=== PATIENT | male | born 1990 | race Hispanic/Latino ===

== ENCOUNTER 2017-05-12 03:16 | Emergency (ER) | payer OTHER ==
[2017-05-12 03:29] VITALS: TEMP 98.7
[2017-05-12] MEDS ORDERED: Sodium Chloride 0.9% 1,000 ML IV STA (03:46)
[2017-05-12 03:57] LABS: HEMOGLOBIN 14.1 g/dL (14.0-18.0); MEAN CELL VOLUME 87.3 fl (80.0-105.0); MEAN CORPUSCULAR HEMOGLOBIN 29.3 pg (25.0-35.0); MEAN CORPUSCULAR HGB CONC 33.6 g/dl (31.0-37.0); MEAN PLATELET VOLUME 10.4 fl (7.0-11.0); RBC 4.81 10^6/uL (3.5-6.1); RED CELL DISTRIBUTION WIDTH 13.8 % (11.5-14.5); WHITE BLOOD COUNT 10.1 10^3/ul (4.5-11.0)
--- NOTE | 2017-05-12 04:00 | ED PDOC ---
Arrival/HPI <Tobi Galvan - Last Filed: 05/12/17 05:32> - General Historian: Patient - History of Present Illness Time/Duration: 1 hour Symptom Onset: Sudden Symptom Course: Improving Context: Home <Makenzie Lomeli - Last Filed: 05/12/17 05:45> - General Chief Complaint: Syncope Time Seen by Provider: 05/12/17 03:22 - History of Present Illness Narrative History of Present Illness (Text): 05/12/17 03:51 27 y/o male with past medical history of complicated PNA with ARDS about 1 year ago presents for syncopal episode that pt experienced at home 1 hour prior to coming to ED. Patient states that he was sitting on toilet when he felt lightheaded. He eventually fell forward after loosing consciousness. Patient does not know how long he was down for. Denies having any N/V/, abd pain, CP, SOB, recent illnesses, F/C. Currently c/o headache. Patient recalls 1 similar episode of syncope about 8 years ago also during straining on toilet. Patient is noted to have abrasion on nose (Makenzie Lomeli) Past Medical History - Provider Review Nursing Documentation Reviewed: Yes - Travel History Have you recently traveled outside [place] w/in the past 3 mons?: No - Cardiac Other/Comment: ards - Pulmonary Hx Respiratory Disorders: No - Neurological Hx Neurological Disorder: No - HEENT Hx HEENT Disorder: No - Renal Hx Renal Disorder: No - Endocrine/Metabolic Hx Endocrine Disorders: No - Hematological/Oncological Hx Blood Disorders: No - Integumentary Hx Dermatological Disorder: No - Musculoskeletal/Rheumatological Hx Musculoskeletal Disorders: No - Genitourinary/Gynecological Hx Genitourinary Disorders: No - Psychiatric Hx Psychophysiologic Disorder: No Hx Substance Use: No - Surgical History Other/Comment: tracheostomy x1 year <Makenzie Lomeli - Last Filed: 05/12/17 05:45> Family/Social History - Physician Review Nursing Documentation Reviewed: Yes Family/Social History: Unknown Family HX Smoking Status: Never Smoked Hx Alcohol Use: Yes Frequency of alcohol use: Socially Hx Substance Use: No <Makenzie Lomeli - Last Filed: 05/12/17 05:45> Allergies/Home Meds <Tobi Galvan - Last Filed: 05/12/17 05:32> <Makenzie Lomeli - Last Filed: 05/12/17 05:45> Allergies/Adverse Reactions: Allergies metoclopramide [From Reglan] Adverse Reaction (Verified 05/12/17 03:31) ANAPHYLAXIS bp irregular corresponds with reglan dosing Home Medications: Home Meds Medication Instructions Recorded Confirmed Cetirizine HCl [Zyrtec Allergy] 10 mg PO DAILY 05/12/17 05/12/17 Review of Systems - Review of Systems Constitutional: Normal. absent: Fatigue, Fevers Eyes: Normal. absent: Vision Changes, Photophobia, Eye Pain ENT: Normal. absent: Sore Throat, Rhinorrhea Respiratory: Normal. absent: SOB, Sputum, Wheezing Cardiovascular: Normal. absent: Chest Pain, Palpitations, Edema, Calf Pain Gastrointestinal: Normal. absent: Abdominal Pain, Constipation, Diarrhea, Nausea, Vomiting Genitourinary Male: Normal. absent: Dysuria, Frequency Musculoskeletal: Normal. absent: Arthralgias, Back Pain, Neck Pain Skin: Normal. absent: Rash, Pruritis, Skin Lesions, Laceration Neurological: Headache, Other (syncope ) Endocrine: Normal. absent: Diaphoresis, Polyuria Hemo/Lymphatic: Normal. absent: Adenopathy, Easy Bleeding Psychiatric: absent: Anxiety, Depression <Makenzie Lomlei - Last Filed: 05/12/17 05:45> Physical Exam Vital Signs Reviewed: Yes Temperature: Afebrile Blood Pressure: Normal Pulse: Tachycardic Respiratory Rate: Normal Appearance: Positive for: Well-Appearing, Non-Toxic, Comfortable Pain Distress: Mild Mental Status: Positive for: Alert and Oriented X 3 - Systems Exam Head: Present: Normocephalic, Abrasion (on bridge of nose ). No: Atraumatic Pupils: Present: PERRL Extroacular Muscles: Present: EOMI Conjunctiva: Present: Normal Mouth: Present: Moist Mucous Membranes Pharnyx: No: ERYTHEMA, EXUDATE, TONSILS ENLARGED Nose (External): Present: Abrasion Nose (Internal): Present: Other (dry blood noted in nares ). No: No Active Bleeding Neck: Present: Normal Range of Motion. No: MIDLINE TENDERNESS Respiratory/Chest: Present: Clear to Auscultation, Good Air Exchange. No: Respiratory Distress, Accessory Muscle Use, Wheezes, Rhonchi Cardiovascular: Present: Regular Rate and Rhythm, Normal S1, S2. No: Murmurs, Rub, Gallop Abdomen: Present: Normal Bowel Sounds. No: Tenderness, Distention, Peritoneal Signs, Rebound, Guarding Lower Extremity: Present: Normal Inspection, NORMAL PULSES, Normal ROM. No: Edema, CALF TENDERNESS, Kim's Sign, Tenderness Neurological: Present: GCS=15, CN II-XII Intact, Speech Normal, Motor Func Grossly Intact, Normal Sensory Function, Memory Normal Skin: Present: Warm, Dry, Normal Color, Abrasion (bridge of nose ). No: Rashes Psychiatric: Present: Alert, Oriented x 3, Normal Insight, Normal Concentration <Makenzie Lomeli - Last Filed: 05/12/17 05:45> Vital Signs Temp Pulse Resp BP Pulse Ox 05/12/17 05:16 89 16 120/78 100 05/12/17 03:25 98.7 F 102 H 22 118/79 98 Medical Decision Making - EKG Interpretation Interpreted by ED Physician: Yes Type: 12 lead EKG <Tobi Galvan - Last Filed: 05/12/17 05:32> - Lab Interpretations I have reviewed the lab results: Yes Interpretation: All labs normal - RAD Interpretation [employer] Operations Intelligence Officer: ED Physician - EKG Interpretation Interpreted by ED Physician: Yes Type: 12 lead EKG <Makenzie Lomeli - Last Filed: 05/12/17 05:45> ED Course and Treatment: Impression: Pt seen and evaluated with medical staff specialist. 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 Aware and agree with HPI, clinical findings, plan, and management. Plan: -- CT Head w/o contrast -- EKG -- XR Nasal Bones -- Labs, cardiac enzymes -- IV fluids -- Reassess and disposition (Tobi Galvan) 05/12/17 04:06 27 y/o male presents after experiencing syncopal episode at home Will check: CBC, BMP, cardiac enzymes, EKG, CT of head and x ray of nose Patient will get 1 L of NS bolus 05/12/17 04:36 CT of head is noted to be negative. Nasal xrays are normal. abrasion is cleaned and bacitracin is applied to effected area. (Makenzie Lomeli) - Lab Interpretations Lab Results: 05/12/17 03:45 05/12/17 04:30 Lab Results 05/12/17 04:30: Sodium 138, Potassium 4.3, Chloride 106, Carbon Dioxide 23, Anion Gap 13, BUN 14, Creatinine 0.9, Est GFR ( Amer) > 60, Est GFR (Non- Af Amer) > 60, Random Glucose 114 H, Calcium 8.7, Lactate Dehydrogenase 533, Total Creatine Kinase 240 H, CK-MB (CK-2) 1.3, CK-MB (CK-2) % Cancelled, Troponin I < 0.01 05/12/17 03:45: WBC 10.1, RBC 4.81, Hgb 14.1, Hct 42.0, MCV 87.3, MCH 29.3, MCHC 33.6, RDW 13.8, Plt Count 248, MPV 10.4 - RAD Interpretation Narrative RAD Interpretations (Text): 05/12/17 05:27 nasal x rays are nromal. Ct of head is negative (Makenzie Lomeli) Radiology Orders: 05/12/17 03:48 HEAD W/O CONTRAST [CT] Stat NASAL BONES [RAD] Stat - EKG Interpretation EKG Interpretation (Text): 05/12/17 04:08 NSR with HR of 93. 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 SHERYL has examined the patient and agrees with the treatment plan. <Tobi Galvan - Last Filed: 05/12/17 05:32> Disposition/Present on Arrival <Tobi Galvan - Last Filed: 05/12/17 05:32> - Present on Arrival Any Indicators Present on Arrival: No History of DVT/PE: No History of Uncontrolled Diabetes: No Urinary Catheter: No History of Decub. Ulcer: No History Surgical Site Infection Following: None - Disposition Have Diagnosis and Disposition been Completed?: Yes Disposition Time: 05:25 Patient Plan: Discharge <Makenzie Lomeli - Last Filed: 05/12/17 05:45> - Disposition Diagnosis: Vasovagal episode, Nasal contusion Disposition: HOME/ ROUTINE Patient Problems: Current Active Problems Problem Status Onset Nasal contusion Acute Vasovagal episode Acute Condition: GOOD Additional Instructions: Zeke Titus, thank you for letting us take care of you today. Your provider was Makenzie Lomeli. You were treated for vasovagal episode. The emergency medical care you received today was directed at your acute symptoms. If you were prescribed any medication, please fill it and take as directed. It may take several days for your symptoms to resolve. Return to the Emergency Department if your symptoms worsen, do not improve, or if you have any other problems. Please contact your doctor or call one of the physicians/clinics you have been referred to that are listed on the Patient Visit Information form that is included in your discharge packet. Bring any paperwork you were given at discharge with you along with any medications you are taking to your follow up visit. Our treatment cannot replace ongoing medical care by a primary care provider (PCP) outside of the emergency department. Thank you for allowing the [facility] team to be part of your care today. If you had an X-Ray or CT scan: A Radiologist will review the ED reading if any change in treatment is needed we will contact you. If you had a blood, urine, or wound culture: It will take several days for the results, if any change in treatment is needed we will contact you. If you had an STI test: It will take 48 hours for the results. Please call after 1 week if you have not heard back. Forms: [facility] (Greenlandic), WORK NOTE
[2017-05-12 04:53] LABS: BLOOD UREA NITROGEN 14 mg/dL (7-21); CALCIUM 8.7 mg/dL (8.4-10.5); GFR AFRICAN-AMERICAN > 60; GFR NON-AFRICAN AMERICAN > 60
[2017-05-12 05:09] LABS: CK-MB 1.3 ng/mL (0.0-3.6)
[2017-05-12 05:13] LABS: TROPONIN I < 0.01 ng/mL
[2017-05-12 05:43] VITALS: BP 120/78; PULSE 89; RESP 16; O2SAT 100
--- NOTE | 2017-05-12 07:02 | CT ---
PROCEDURE: CT HEAD WITHOUT CONTRAST. HISTORY: syncope COMPARISON: None available. TECHNIQUE: Axial computed tomography images were obtained through the head/brain without intravenous contrast. Radiation dose: Total exam DLP = 725.84 mGy-cm. This CT exam was performed using one or more of the following dose reduction techniques: Automated exposure control, adjustment of the mA and/or kV according to patient size, and/or use of iterative reconstruction technique. FINDINGS: HEMORRHAGE: No intracranial hemorrhage. BRAIN: No mass effect or edema. No atrophy or chronic microvascular ischemic changes. VENTRICLES: Unremarkable. No hydrocephalus. CALVARIUM: Unremarkable. PARANASAL SINUSES: Chronic ethmoid air cell disease. MASTOID AIR CELLS: Unremarkable as visualized. No inflammatory changes. OTHER FINDINGS: None. IMPRESSION: Normal CT of the Head.
--- NOTE | 2017-05-12 08:02 | RAD ---
PROCEDURE: No all HISTORY: syncope COMPARISON: None available. TECHNIQUE: Frontal and lateral radiographs of the nasal bones. FINDINGS: No fracture of nasal bones visualized. No destructive lesion. IMPRESSION: No nasal bone fracture visualized.
--- NOTE | 2017-05-12 15:58 | CARD ---
APPROVED REPORT EKG Measurement Heart [id number] <Conclusion> Normal sinus rhythm Normal ECG
== END 2017-05-12 05:49 | disposition home or self-care (01) ==
LOC: ED 03:16
DX: S00.33XA Contusion of nose, initial encounter (principal); W18.11XA Fall from or off toilet without subsequent striking against object, initial encounter; Y93.E8 Activity, other personal hygiene; Y92.002 Bathroom of unspecified non-institutional (private) residence as the place of occurrence of the external cause; R55 Syncope and collapse
CPT/HCPCS: 70160; 70450; 80048; 82550; 82553; 83615; 84484; 85027; 93005; 96360; 99285; J7040

== ENCOUNTER 2017-05-22 11:40 | Day surgery (SDC) | payer OTHER ==
[2017-05-21 09:04] VITALS: BMI 45.4
[2017-05-22] MEDS ORDERED: Propofol 10 mg/ml Inj (20 ML) ONE (13:22)
[2017-05-22] MEDS ORDERED: Sodium Chloride 0.9% 1,000 ML IV SCH (14:00)
[2017-05-22 15:11] VITALS: BP 140/88; PULSE 70; RESP 17; TEMP 98.2; O2SAT 99
== END 2017-05-22 15:24 | disposition home or self-care (01) ==
LOC: ENDO 11:40
PROVIDERS: ATTEND Internal Medicine
DX: K29.50 Unspecified chronic gastritis without bleeding (principal); K64.8 Other hemorrhoids; K92.1 Melena; Z87.19 Personal history of other diseases of the digestive system
CPT/HCPCS: 43239; 45380; 88305; 88342; J2001; J2704; J3010; J7040 ×2